=== PATIENT | female | born 1950 | race Caucasian/White ===

== ENCOUNTER 2017-08-20 08:09 | Emergency (ER) | payer MEDICARE ==
--- NOTE | 2017-08-20 08:51 | ED Physician Documentation ---
History of Present Illness - Stated complaint Stated Complaint: DIARRHEA - Additonal information Additional information: hx from pt 67 female to ER for 2 concerns 1) burning tongue sensation for approx 4-6 weeks, also hoarse voice 2) int yellow diarrhea and abd cramping for about a month - no known bad food, no foreign travel no sick contacts she did some internet research and is concerned she may have liver dz, she is s/ p theo Review of Systems Constitutional: denies: Fever Throat: reports: Other (burning tongue) Cardiac: denies: Chest pain / pressure Respiratory: denies: Dyspnea GI: reports: Abdominal Pain (cramps), Diarrhea (yellow) Skin: denies: Rash Endocrine: denies: Easy bruising / bleeding Immunocompromised: denies: Immunocompromised PD PAST MEDICAL HISTORY - Present Medications Home Medications: Ambulatory Orders Medication Instructions Recorded Confirmed No Known Home Medications [No 08/20/17 08/20/17 Known Home Medications] - Allergies Allergies/Adverse Reactions: Allergies Allergy/AdvReac Type Severity Reaction Status Date / Time No Known Drug Allergies Allergy Verified 08/20/17 08:20 PD ED PE NORMAL - Vitals Vital signs reviewed: Yes - General General: Alert and oriented X 3 - HEENT HEENT: PERRL, Other (slightly pasty tongue but no ulcers or tumors or cracking/ fissures, no bucal membrane thrush, no trismus, no swelling) - Neck Neck: Supple, no meningeal sign - Cardiac Cardiac: RRR - Respiratory Respiratory: No respiratory distress, Clear bilaterally - Abdomen Abdomen: Soft, Non tender Results - Vitals Vitals: Vital Signs - 24 hr 08/20/17 08/20/17 08/20/17 08:16 09:43 11:52 Temperature 36.8 C Heart Rate 89 98 88 Respiratory 16 15 16 Rate Blood Pressure 155/92 H 167/108 H 157/107 H O2 Saturation 100 100 99 Oxygen O2 Source Room air - Labs Labs: Microbiology 08/20/17 08:45 SKY Preparation - Final Other - Not Otherwise Specified Laboratory Tests 08/20/17 09:00 Sodium 135 Potassium 3.6 Chloride 97 L Carbon Dioxide 26 Anion Gap 12.0 BUN 17 Creatinine 0.9 Estimated GFR (MDRD) 62 L Glucose 102 H Calcium 9.4 Total Bilirubin 1.4 H AST 18 ALT 13 Alkaline Phosphatase 67 Total Protein 7.9 Albumin 5.0 Globulin 2.9 Albumin/Globulin Ratio 1.7 Lipase 20 L - Rads (name of study) ruq sono Radiology: See rad report (nl CBD) PD MEDICAL DECISION MAKING - ED course ED course: bili slightly elevated so will get sono to rout retained CBD stone Departure - Departure Disposition: 01 Home, Self Care Clinical Impression: Painful tongue Diarrhea Qualifiers: Diarrhea type: unspecified type Qualified Code(s): R19.7 - Diarrhea, unspecified Condition: Good Follow-Up: [facility] [Provider Group] [facility] [Provider Group] Comments: Your tongue/mouth does not appear to have a bacterial viral or fungal infection. I am not certain what is causing the burning. There are some autoimmune diseases such as Sjogrens that can cause symptoms like this but that would be beyond the scope of an ER visit to work up - please follow up with your PMD for further evaluation - if you don't have a PMD try calling [facility] or [facility] to establish care. One of your liver tests called bilirubin was slightly elevated so we did an ultrasound to be sure there were no stones remaining after your gallbladder surgery - and there are not. The liver otherwise looked healthy on ultrasound and the other liver tests are fine. I don't think the yellow diarrhea is due to a liver problem. We wanted to check your stool for infection but you were not able to provide a stool sample so that could not be done. if the diarrhea persists, you can collect a sample and take it to your PMD or the urgent care in [place]. Return to the ER if worse or new symptoms develop Also your blood pressure was high and should be rechecked when you see your PMD
[2017-08-20 09:19] LABS: ALBUMIN/GLOBULIN RATIO 1.7 (1.0-2.2); BILIRUBIN,TOTAL 1.4 mg/dL (0.2-1.0); CALCIUM 9.4 mg/dL (8.5-10.3); CREATININE 0.9 mg/dL (0.4-1.0); POTASSIUM 3.6 mmol/L (3.5-5.0); TOTAL PROTEIN 7.9 g/dL (6.7-8.2)
[2017-08-20 12:56] VITALS: BP 145/84
--- NOTE | 2017-08-20 13:06 | Ultrasound Report ---
RIGHT UPPER QUADRANT ULTRASOUND: 08/20/2017 CLINICAL INDICATION: History of cholecystectomy, elevated bilirubin, diarrhea. TECHNIQUE: Real-time scanning was performed with primary care sales representative static images obtained. FINDINGS: The liver measures 10 cm. Hepatic echogenicity is normal. No intrahepatic biliary dilatation or focal parenchymal lesion is present. The common bile duct measures 3 mm. The gallbladder is surgically absent. The right kidney measures 10.2 cm, and demonstrates a small extrarenal pelvis. No hydronephrosis or focal renal lesion is present. No free fluid is seen. IMPRESSION: CHANGES OF CHOLECYSTECTOMY. NO EVIDENCE OF BILIARY DILATATION OR FOCAL LIVER LESION. GABBY/ TD: 08/20/2017 13:55 [facility]
== END 2017-08-20 13:00 | disposition home or self-care (01) ==
LOC: ED 08:09
DX: K14.6 Glossodynia (principal); R19.7 Diarrhea, unspecified; R03.0 Elevated blood-pressure reading, without diagnosis of hypertension
CPT/HCPCS: 36415; 76705; 80053; 83690; 87220; 99283

== ENCOUNTER 2017-08-28 13:42 | Outpatient (CLI) | payer MEDICARE ==
[2017-08-28] MEDS ORDERED: IOPAMIDOL-300 100 ML VIAL ONE (14:14)
[2017-08-28] MEDS ORDERED: IOPAMIDOL-300 50 ML VIAL ONE (14:14)
== END 2017-08-28 13:43 | disposition home or self-care (01) ==
LOC: DI 13:42
PROVIDERS: ATTEND Specialist
DX: Z53.9 Procedure and treatment not carried out, unspecified reason (principal)